=== PATIENT | female | born 1985 | race Caucasian/White ===

== ENCOUNTER 2023-12-16 22:51 | Emergency (ER) | payer BC, SELFPAY ==
[2023-12-16 22:54] VITALS: BP 129/91
--- NOTE | 2023-12-17 00:24 | ED.GENMED ---
History of Present Illness
General
Chief Complaint: Headache
Time Seen by Provider: 12/17/23 00:24
History of Present Illness
History of Present Illness:
TIME OF INITIAL ENCOUNTER: 12:25 AM
HPI: Started [facility] 2d ago. Now w/ photophobia and N/V. Pt had severe similar ESPINAL about a year ago - felt was a migraine and was seen in ED at that time. No other neurologic symptoms. No fevers.
EXAM:
GENERAL: Well appearing in mild distress
HEENT: Moist oral mucosa
ABDOMEN: Soft with no peritoneal signs, no tenderness
NEUROLOGIC: Excellent strength all extremities, no coordination deficits
PSYCHIATRIC: Appropriate mental status, normal insight and judgement
EXTREMITIES: Nontender, no edema, moves all extremities equally
SKIN: No rash, no lesions
NUMBER AND COMPLEXITY OF PROBLEMS ADDRESSED AT THE ENCOUNTER
� Chronic conditions affecting care: ADHD, headaches
� Acute Exacerbation and/or Progression of Chronic Illness: This is an acute problem
� Differential Diagnosis includes: Migraine headache, nonspecific headache, tension headache
AMOUNT AND/OR COMPLEXITY OF DATA TO BE REVIEWED AND ANALYZED
� I performed an independent evaluation of and my interpretation is:
EKG:
CT:
X-rays:
Laboratory Studies:
Other:
� Review of other/old records: The patient was seen here with headache in September 2022
� Clinical information was obtained by an independent historian:
� Prescriptions/Medications Considered but not given:
� Further testing considered but not performed:
RISK OF COMPLICATIONS AND/OR MORBIDITY OR MORTALITY OF PATIENT MANAGEMENT
� Social determinants of health affecting care: Lives at home.
� Discussion with other providers:
� Escalation of care including admission/observation vs risk of discharge considered: The patient was given Toradol and Reglan/Benadryl. Also gave IVF.
ANY OTHER UPDATES:
1:30am: Reassessed after meds given. Feeling improved. Has ride.
Past History
Past History
ED Past Medical History: None
ED Past Surgical History:
Social History
Tobacco: Non-smoker
Alcohol: None
Drug: None
Personal:
Living: with family
Employment: Employed
Phy Exam
Physical Exam
Physical Exam:
See HPI
Course
Orders/Labs/Results
Orders:
Orders
12/17/23 00:33
0.9% Sodium Chloride 1000 ml [Nss] 1,000 ml IV BOLUS
Diphenhydramine [Benadryl] 25 mg IV NOW STA
Ketorolac [Toradol] 15 mg IV NOW STA
Metoclopramide [Reglan] 10 mg IV NOW STA
Vital Signs
Initial and Last Documented VS:
Initial Vital Signs
Temp Pulse Resp BP Pulse Ox
97.8 F 95 24 129/91 100
12/16/23 22:54 12/16/23 22:54 12/16/23 22:54 12/16/23 22:54 12/16/23 22:54
Last Documented Vital Signs
Temp Pulse Resp BP Pulse Ox
97.8 F 95 16 116/72 100
12/16/23 22:54 12/16/23 22:54 12/17/23 01:47 12/17/23 01:00 12/17/23 01:46
*Critical Care Note
Total Time (30-74mins, 75-104mins- exclusive of procedures): Not Applicable
ED Attending Note
-
Portions of this chart may have been created with voice recognition software.� Occasional wrong word or��sound alike� substitutions may have occurred due to the inherent limitations of voice recognition software.
Discharge Plan
Departure
Patient Disposition: Home (Routine Discharge)
Date of Disposition: 12/17/23
Time of Disposition: 01:44
Patient with high blood pressure during this ER visit?: Yes
Discharge Problem:
Headache
Instructions: Migraines (DC), Headache, Adult (DC)
Prescriptions:
No Action
venlafaxine [Effexor XR] 150 mg Capsule,Extended Release 24hr
150 mg PO DAILY
Referrals:
NONE,* [Family Provider] -
Activity Restrictions/Additional Instructions:
The cause of your symptoms may be due to medication induced migraine type headache. We gave Toradol, IV fluids, and Reglan/Benadryl. Follow up with your PMD. Return here if worse.
Interventions
Interventions:
*Risk Screen - Suicide Last Done: 12/16/23 22:54
*General Assessment Last Done: 12/17/23 01:45
*Neglect/Abuse Screening Last Done: 12/17/23 01:45
*ED COVID-19 Vaccine History Last Done: 12/17/23 01:45
ED- Neurological Assessment Last Done: 12/17/23 01:46
Discharge Date and Time
Print Language: GUINEAN
[2023-12-17 00:42] VITALS: BP 113/74
[2023-12-17] MEDS: TORADOL 15 MG IV (00:49)
[2023-12-17] MEDS: BENADRYL 25 MG IV (00:49)
[2023-12-17] MEDS: REGLAN 10 MG IV (00:50)
[2023-12-17] MEDS: NSS 1000 IV (00:50)
[2023-12-17 01:00] VITALS: BP 116/72
[2023-12-17 01:57] VITALS: BP 114/75
== END 2023-12-17 02:31 | disposition home or self-care (01) ==
LOC: EMR 22:51
PROVIDERS: EMERGENCY PHYSICIAN Emergency Medicine
DX: R51.9 Headache, unspecified (principal)
CPT/HCPCS: 99282; 96374; 96375; 96361